=== PATIENT | male | born 1965 | race Caucasian/White ===

== ENCOUNTER 2022-04-09 00:12 | Emergency (ER) | payer OTHER ==
[~2022-04-09] VITALS: Ht 175.3 cm; Wt 79.4 kg
[2022-04-09 00:12] VITALS: BP 157/78
--- NOTE | 2022-04-09 00:21 | NUR ---
PT PATRICIA NEWTON TO LOBBY
--- NOTE | 2022-04-09 02:35 | NUR ---
Dr. Byrne examining patient.
[2022-04-09] MEDS ORDERED: ACETAMINOPHEN EXTRA STRENGTH 500 MG TAB PO ONE (02:45)
--- NOTE | 2022-04-09 02:58 | NUR ---
Patient discharged with v/s stable. Written and verbal after care instructions given and explained. Patient verbalized understanding. Ambulatory with steady gait. All questions addressed prior to discharge. Advised to follow up with PMD.
== END 2022-04-09 02:58 | disposition home or self-care (01) ==
LOC: MED 00:12
DX: R07.89 Other chest pain (principal); F10.129 Alcohol abuse with intoxication, unspecified; Y90.9 Presence of alcohol in blood, level not specified; I10 Essential (primary) hypertension; Z59.00 Homelessness unspecified
CPT/HCPCS: 93005; 99283

== ENCOUNTER 2022-06-17 21:33 | Emergency (ER) | payer OTHER ==
[~2022-06-17] VITALS: Ht 175.3 cm; Wt 86.2 kg
[2022-06-17 21:33] VITALS: BP 110/80
--- NOTE | 2022-06-17 21:33 | NUR ---
TO LOBBY A/W BED AMBULATORY
--- NOTE | 2022-06-17 23:05 | NUR ---
Dr. Zhu examining patient.
[2022-06-18 03:58] VITALS: BP 115/80
== END 2022-06-18 03:58 | disposition home or self-care (01) ==
LOC: MED 21:33
DX: F10.129 Alcohol abuse with intoxication, unspecified (principal); Y90.9 Presence of alcohol in blood, level not specified
CPT/HCPCS: 99283

== ENCOUNTER 2022-06-20 09:22 | Emergency (ER) | payer OTHER ==
[~2022-06-20] VITALS: Ht 175.3 cm; Wt 74.8 kg
[2022-06-20 09:32] VITALS: BP 147/67
--- NOTE | 2022-06-20 09:45 | NUR ---
DAGOBERTO NEWTON RUN FOR REFILL ON [employer].
[2022-06-20] MEDS ORDERED: KEP500 PO (09:48)
--- NOTE | 2022-06-20 10:03 | NUR ---
Patient discharged with v/s stable. Written and verbal after care instructions given and explained. Patient alert, oriented and verbalized understanding of instructions. Ambulatory with steady gait. All questions addressed prior to discharge. ID band removed. Patient advised to follow up with PMD. Rx of KEJUAN given. Patient educated on indication of medication including possible reaction and side effects. Opportunity to ask questions provided and answered.
== END 2022-06-20 10:03 | disposition home or self-care (01) ==
LOC: MED 09:22
DX: G40.909 Epilepsy, unspecified, not intractable, without status epilepticus (principal); Z76.0 Encounter for issue of repeat prescription; Z79.899 Other long term (current) drug therapy
CPT/HCPCS: 99281

== ENCOUNTER 2022-06-20 14:46 | Emergency (ER) | payer OTHER ==
[~2022-06-20] VITALS: Ht 175.3 cm; Wt 95.3 kg
[~2022-06-20 14:46] MED LIST: KEP500 PO
[2022-06-20 14:49] VITALS: BP 127/80
--- NOTE | 2022-06-20 14:54 | NUR ---
PT TO [facility]
--- NOTE | 2022-06-20 15:35 | NUR ---
called by pa taylor no answer at this time
--- NOTE | 2022-06-20 15:36 | NUR ---
1 ST CALL N/A IN ER LOBBY [id number] CALL ER LOBBY N/A [id number] CALL ER DEMIAN
== END 2022-06-20 15:36 | disposition left against medical advice (07) ==
LOC: MED 14:46
DX: R56.9 Unspecified convulsions (principal); Z76.0 Encounter for issue of repeat prescription; Z53.21 Procedure and treatment not carried out due to patient leaving prior to being seen by health care provider

== ENCOUNTER 2022-06-22 09:51 | Inpatient (IN) | payer OTHER ==
[~2022-06-22] VITALS: Ht 182.9 cm; Wt 95.3 kg
[2022-06-22 09:52] VITALS: BP 116/60
[2022-06-22] MEDS ORDERED: levETIRAcetam 1,000 MG in NACL 0.9% 100 ML IV ONE (09:55)
[2022-06-22] MEDS ORDERED: NACL 0.9% 1,000 ML IV SCH (09:55)
[2022-06-22] MEDS ORDERED: LORazepam 2 MG/ML VIAL IVP ONE (10:00)
--- NOTE | 2022-06-22 10:00 | NUR ---
pt biba draw sheeted to bed 6
--- NOTE | 2022-06-22 10:01 | NUR ---
57 Y/O MALE BIBA FROM THE STREET C/O ALOC/SEIZURE. PT WAS FOUND FACE DOWN, UNRESPONSIVE. PT HAD ACTIVE SEIZURE LASTING 30 SECONDS IN AMBULANCE. MEDICS GAVE 5MG VERSED IN. PT PRESENTS TO ED POSTICTAL, GCS 3, PT COUGHING +GAG REFLEX. PT ON 15L NONREBREATHER. +REDNESS/ABRASIONS TO FOREHEAD. PT HOMELESS, DIRTY AND DISHELEVED. PT IN GOWN ON CARDIAC/O2 MONITOR. RT AT BEDSIDE. DR HENRIQUEZ AWARE OF PTS STATUS PMH:SEIZURE- MEDICATION BOTTLE OF KEPPRA FOUND ON PT ALLERGIES:UNOBTAINABLE
--- NOTE | 2022-06-22 10:11 | NUR ---
TAKEN TO CT SCAN
[2022-06-22 10:20] LABS: BASOPHILS # (AUTO) 0.1 K/uL (0.00-0.22); BASOPHILS % (AUTO) 0.8 % (0.0-2.0); EOSINOPHILS # (AUTO) 0.3 K/uL (0-0.4); HEMOGLOBIN 12.5 g/dL (12.0-18.0); LYMPHOCYTES % (AUTO) 11.9 % (20.5-51.1); MEAN CORPUSCULAR HEMOGLOBIN 28 pg (27-31); MEAN CORPUSCULAR HGB CONC 31 g/dL (33-37); MEAN CORPUSCULAR VOLUME 89.7 fL (80-94); MONOCYTES # (AUTO) 1.1 K/uL (0.8-1.0); MONOCYTES % (AUTO) 6.4 % (1.7-9.3); NEUTROPHILS # (AUTO) 13.1 K/uL (1.8-7.7); NEUTROPHILS % (AUTO) 78.9 % (42.2-75.2); PLATELET COUNT (AUTO) 265 K/uL (140-450); RED BLOOD CELL COUNT(AUTO) 4.46 MIL/uL (4.20-6.10); RED CELL DISTRIBUTION WIDTH 16.3 % (11.6-13.7); WHITE BLOOD COUNT (AUTO) 16.6 K/uL (4.8-10.8)
--- NOTE | 2022-06-22 10:25 | NUR ---
ASSISTED RN WITH PT TRANSFER TO CT. NO PROBLEMS AT THIS TIME. GLIDESCOPE AND VENT ON STANDBY FOR POSSIBLE INTUBATION
--- NOTE | 2022-06-22 10:26 | NUR ---
BACK FROM CT SCAN
--- NOTE | 2022-06-22 10:27 | NUR ---
PT BACK FROM CT, CONNECTED TO CARDIAC/O2 MONITORING. RT AT BEDSIDE. PT IS NOW MOVING ALL EXTREMETIES VOLUNTARILY. PT OPENING EYES TO VOICE/PAINFUL STIMULI. DR HENRIQUEZ AWARE.
[2022-06-22 10:59] LABS: PROTHROMBIN TIME 9.6 secs (10.8-13.4)
[2022-06-22 11:10] LABS: ALBUMIN 3.8 g/dL (3.4-5.0); ANION GAP 35.1 (8-16); CARBON DIOXIDE 9.7 mmol/L (21-32); CREATININE 1.2 mg/dL (0.6-1.3); POTASSIUM 3.8 mmol/L (3.5-5.1); TOTAL BILIRUBIN 0.1 mg/dL (0.0-1.0)
[2022-06-22 11:30] LABS: ACETAMINOPHEN < 0.5 ug/ml (10-30)
[2022-06-22] MEDS ORDERED: CEFEPIME 2,000 MG in DEXTROSE 5% 100 ML IV ONE (11:45)
[2022-06-22] MEDS ORDERED: NACL 0.9% 1,000 ML IV ONE (11:45)
[2022-06-22] MEDS ORDERED: LACTULOSE 20 GM/30 ML UDC PO ONE (11:45)
[2022-06-22] MEDS ORDERED: VANCOMYCIN 1,000 MG in DEXTROSE 5% 250 ML IV ONE (11:45)
[2022-06-22] MEDS ORDERED: NACL 0.9% 2,000 ML IV ONE (11:45)
--- NOTE | 2022-06-22 11:50 | NUR ---
SPO2 100% ON 15 LITERS NONREBREATHER, PT PLACED ON 5L N/C PER DR EPPS
--- NOTE | 2022-06-22 11:51 | NUR ---
PT IS NOW AWAKE AND ANSWERING QUESTIONS. PT A/O X4. PT STATES "I HAD A SEIZURE". PT REPORTS HE HAS BEEN HAVING HEADACHE, FEVER, DIARRHEA X1 WEEK. PT REPORTS HX OF SEIZURE AND ALLERGIES TO PCN.
[2022-06-22] MEDS ORDERED: CEFEPIME 2,000 MG VIAL IV ONE (12:05)
--- NOTE | 2022-06-22 12:40 | NUR ---
PT SOILED HIMSELF. PT CLEANED, PROVIDED NEW GOWN AND DIAPER. DR HENRIQUEZ AWARE
[2022-06-22] MEDS ORDERED: LOPERAMIDE 2 MG CAP PO ONE (12:45)
--- NOTE | 2022-06-22 12:45 | NUR ---
DR WILSON AT BEDSIDE EVALUATING PT
[2022-06-22] MEDS ORDERED: ACETAMINOPHEN 325 MG TAB PO PRN (12:55)
[2022-06-22] MEDS ORDERED: MORPHINE SULFATE 2 MG/ML SYR IVP PRN (12:55)
[2022-06-22] MEDS ORDERED: LORazepam 2 MG/ML VIAL IVP PRN (12:55)
[2022-06-22] MEDS ORDERED: ONDANSETRON 4 MG/2 ML VIAL IVP PRN (12:55)
[2022-06-22] MEDS ORDERED: VANCOMYCIN 1,000 MG VIAL ONE (13:01)
--- NOTE | 2022-06-22 13:15 | NUR ---
Giovany jimenez in [facility] - 06/22/22 at 1317 by [id number] RA. N/C REMOVED.
--- NOTE | 2022-06-22 13:25 | NUR ---
PT PRESENTED TO ED WITH SOILED SOCKS, WHILE APPLYING NEW CLEAN SOCKS, AN UNKNOWN PIPE AND A LIGHT WAS FOUND IT PTS SOCKS. PT STATED "ITS MEDICINE, ITS WEED". DR WILSON AWARE. SECURITY CALLED AND TOOK BELONGINGS.
--- NOTE | 2022-06-22 13:30 | NUR ---
Patient will be admitted to care of DR WILSON. Admited to TELEMETRY. Will go to room 119A. Belongings list completed. Report to REGINALD WILDER.
--- NOTE | 2022-06-22 14:15 | NUR ---
RECEIVED FROM ED PT A/OX2 SOMEWHAT NON COMPLIANT FOLLOWS SIMPLE COMMANDS WITH REPATATIVE COMMANDS ASSESSMENT COMPLETED PLAN OF CARE REVIEWED WILL CONTINUE TO MONITOR AND ASSESS PT WITH LARGE BM
[2022-06-22 16:00] VITALS: BP 143/89
[2022-06-22] MEDS: NACL 0.9% 1,000 ML IV SCH ×2 (18:00→20:00)
--- NOTE | 2022-06-22 18:00 | NUR ---
PT IMPULSIVE GETTING OUT OF BED WITHOUT ASSISSTANCE MADE AWARE TO USE CALL LIGHT PT PULLED OUT IV AND REFUSING OXYGEN IMPORTANCE OF OXYGEN EXPLAINED AND PT AGREED TO WEAR OXYGEN ORDERED ALL NEEDS ANTICIPATED AND MET WILL ENDORSE CARE TO ONCOMING LICNESED NURSE
--- NOTE | 2022-06-22 19:20 | NUR ---
RECEIVED REPORT FROM DAY SHIFT NURSE. NO S/S OF DISTRESS. CALL LIGHT IN REACH. ALL SAFETY MEASURES IN PLACE. SYMMETRICAL CHEST RISE AND FALL. IV PULLED OUT. WILL REENFORCE LEFT HAND IV AND RESTART FLUIDS
--- NOTE | 2022-06-22 19:30 | NUR ---
RECEIVED REPORT FROM DAY SHIFT NURSE. NO S/S OF DISTRESS. CALL LIGHT IN REACH. ALL SAFETY MEASURES IN PLACE. SYMMETRICAL CHEST RISE AND FALL. TIM ARORA AT BEDSIDE. GTUBE RUNNING PER ORDER Addendum: 06/22/22 at 2118 by Frieda Mariee RN RN DISREGARD WRONG PT
[2022-06-22 20:00] VITALS: BP 97/46
[2022-06-22] MEDS: levETIRAcetam 500 MG in NACL 0.9% 100 ML IV SCH (20:42)
--- NOTE | 2022-06-22 20:43 | NUR ---
PT COMPLAINED OF ANXIETY AND RESTLESSNESS. PRN ADMINISTERED PER MD ORDER. TELE BOX CHANGED. REORIENTED PT TO ROOM, CALL LIGHT, IV TUBING, AND TELE BOX.
--- NOTE | 2022-06-22 21:10 | NUR ---
PT STABLE. NO S/S OF DISTRESS. ALL SAFETY MEASURES IN PLACE. ARORA DRAINING. GT RESIDUAL 5ML, TOLERATING WELL. PT DIAPHORETIC, TEMP 96.8, KS 109 Addendum: 06/22/22 at 2120 by Frieda Mariee RN RN DISREGARD, WRONG PT
[2022-06-22 22:21] LABS: APPEARANCE,URINE CLEAR (CLEAR); BILIRUBIN,URINE NEGATIVE (NEGATIVE); BLOOD, URINE 2+ (NEGATIVE); COLOR,URINE YELLOW (YELLOW); LEUKOCYTE ESTERASE ,URINE NEGATIVE (NEGATIVE); NITRITE, URINE NEGATIVE (NEGATIVE); PH,URINE 5.5 (5.0-9.0); UGLUCOSE 1+ (NEGATIVE)
[2022-06-22 22:36] LABS: RBC,URINE 0-5 /HPF (0-5); WBC,URINE 0-5 /HPF (0-5)
--- NOTE | 2022-06-22 23:56 | NUR ---
PT UP TO BR. PROVIDED WARM BLANKET. SEIZURE PRECAUTIONS IN PLACE. NO S/S OF DISTRESS. CALL LIGHT IN REACH. ALL SAFETY MEASURES IN PLACE. IV REENFORCED AND RUNNING PER MD ORDERS
[2022-06-23] VITALS: BP 150/79
--- NOTE | 2022-06-23 02:12 | NUR ---
PT UP TO BR. REORIENTATED TO IV PUMP AND TUBING. REENFORCED IV SITE
[2022-06-23] MEDS: NACL 0.9% 1,000 ML IV SCH ×2 (02:15→08:19)
--- NOTE | 2022-06-23 04:00 | NUR ---
PT REFUSED VITALS, STATED "LEAVE ME ALONE TO SLEEP". NO S/S OF DISTRESS. CALL LIGHT IN REACH. ALL SAFETY MEASURES IN PLACE
--- NOTE | 2022-06-23 06:25 | NUR ---
SPOKE TO PT AND LAB. PT AGREED TO ALLOW LABS TO BE DRAWN. CLAY CARMAN AT BEDSIDE. PT PULLED OUT IV, CANULA WAS INTACT. REORIENTED PT TO IV PUMP AND TUBING, EXPLAINED THAT PT MUST TAKE IV POLE TO AND FROM BR. NEW IV INSERTED, PT TOLERATED WELL. ALL SAFETY MEASURES IN PLACE
[2022-06-23 07:12] LABS: BASOPHILS # (AUTO) 0.1 K/uL (0.00-0.22); EOSINOPHILS # (AUTO) 0.3 K/uL (0-0.4); EOSINOPHILS % (AUTO) 4.6 % (0.0-4.0); HEMATOCRIT 35.9 % (36-52); HEMOGLOBIN 11.6 g/dL (12.0-18.0); LYMPHOCYTES # (AUTO) 0.9 K/uL (2.0-11.5); LYMPHOCYTES % (AUTO) 14.3 % (20.5-51.1); MEAN CORPUSCULAR HEMOGLOBIN 28 pg (27-31); MEAN CORPUSCULAR HGB CONC 32 g/dL (33-37); MEAN CORPUSCULAR VOLUME 86.1 fL (80-94); MONOCYTES # (AUTO) 0.7 K/uL (0.8-1.0); MONOCYTES % (AUTO) 11.5 % (1.7-9.3); NEUTROPHILS # (AUTO) 4.4 K/uL (1.8-7.7); NEUTROPHILS % (AUTO) 68.6 % (42.2-75.2); PLATELET COUNT (AUTO) 219 K/uL (140-450); RED BLOOD CELL COUNT(AUTO) 4.17 MIL/uL (4.20-6.10); WHITE BLOOD COUNT (AUTO) 6.4 K/uL (4.8-10.8)
[2022-06-23 07:20] LABS: ALBUMIN 3.1 g/dL (3.4-5.0); ANION GAP 15.5 (8-16); CREATININE 0.7 mg/dL (0.6-1.3); MAGNESIUM 1.6 mg/dL (1.8-2.4); PHOSPHORUS 2.6 mg/dL (2.5-4.9); POTASSIUM 3.5 mmol/L (3.5-5.1); TOTAL BILIRUBIN 0.4 mg/dL (0.0-1.0)
--- NOTE | 2022-06-23 07:35 | NUR ---
ENDORSED PT TO DAY SHIFT NURSE. ALL SAFETY MEASURES IN PLACE
[2022-06-23 08:00] VITALS: BP 126/60
[2022-06-23] MEDS: levETIRAcetam 500 MG in NACL 0.9% 100 ML IV SCH (08:19)
--- NOTE | 2022-06-23 09:00 | NUR ---
patient alert and awake;respirations unlabored.patient pulled iv out and refused a restart.pt said he wants to go home.patient refused telemetry monitoring and medications.dr tong and dr ray
--- NOTE | 2022-06-23 09:16 | NUR ---
PATIENT HAS BEEN SCREENED AND CATEGORIZED LOW NUTRITION RISK. PATIENT WILL BE SEEN WITHIN 7 DAYS OF ADMISSION. 06/29/22 REFERRAL RECEIVED NOT APPLICABLE [address]
--- NOTE | 2022-06-23 11:45 | NUR ---
DC PLANNING PATIENT REFUSED TO PARTICIPATE IN ASSESSMENT AND CONTINUED TO ASK FOR HIS PIPE. PATIENT REFUSED RESOURCES OFFERED BY RAYRAY
[2022-06-23] MEDS ORDERED: KEP500 PO (12:01)
[2022-06-23 12:49] VITALS: BP 126/60
--- NOTE | 2022-06-23 13:58 | NUR ---
patient discharged at this time;instructions given.patient verbalize understanding.
== END 2022-06-23 14:05 | disposition home or self-care (01) | DRG 53 ==
LOC: MED 09:51 → MTU 12:46
PROVIDERS: ADMIT Hospitalist; ATTEND Hospitalist
DX: G40.509 Epileptic seizures related to external causes, not intractable, without status epilepticus (principal); G92.8 Other toxic encephalopathy; E87.20 Acidosis, unspecified; E16.2 Hypoglycemia, unspecified; Z20.822 Contact with and (suspected) exposure to COVID-19; Z59.00 Homelessness unspecified; Z88.0 Allergy status to penicillin; Z79.899 Other long term (current) drug therapy
CPT/HCPCS: 36415; 36600; 70450; 70486; 71045; 80053; 81001; 82009; 82140; 82550; 82553; 82803; 83605; 83735; 83880; 84100; 84484; 85025; 85610; 85730; 87040; 93005; 96365; 96367; 96368; 96375; 99291; G0480; G0482; J0692; J1953; J2060; J3370

== ENCOUNTER 2022-06-25 18:34 | Emergency (ER) | payer OTHER ==
[~2022-06-25] VITALS: Ht 182.9 cm; Wt 94.9 kg
[2022-06-25 18:37] VITALS: BP 110/75
[2022-06-25] MEDS ORDERED: levETIRAcetam 500 MG TAB PO ONE (19:00)
[2022-06-25 19:35] LABS: BASOPHILS # (AUTO) 0.1 K/uL (0.00-0.22); BASOPHILS % (AUTO) 1.8 % (0.0-2.0); EOSINOPHILS # (AUTO) 0.3 K/uL (0-0.4); EOSINOPHILS % (AUTO) 4.9 % (0.0-4.0); HEMATOCRIT 36.1 % (36-52); HEMOGLOBIN 11.8 g/dL (12.0-18.0); LYMPHOCYTES # (AUTO) 2.1 K/uL (2.0-11.5); MEAN CORPUSCULAR HEMOGLOBIN 28 pg (27-31); MEAN CORPUSCULAR HGB CONC 33 g/dL (33-37); MEAN CORPUSCULAR VOLUME 86.4 fL (80-94); MONOCYTES # (AUTO) 0.6 K/uL (0.8-1.0); MONOCYTES % (AUTO) 10.3 % (1.7-9.3); NEUTROPHILS # (AUTO) 2.7 K/uL (1.8-7.7); PLATELET COUNT (AUTO) 238 K/uL (140-450); RED BLOOD CELL COUNT(AUTO) 4.18 MIL/uL (4.20-6.10); RED CELL DISTRIBUTION WIDTH 15.8 % (11.6-13.7); WHITE BLOOD COUNT (AUTO) 5.8 K/uL (4.8-10.8)
[2022-06-25 19:51] LABS: ANION GAP 16.9 (8-16); CARBON DIOXIDE 21.8 mmol/L (21-32); CREATININE 0.7 mg/dL (0.6-1.3); POTASSIUM 3.7 mmol/L (3.5-5.1)
[2022-06-25] MEDS ORDERED: KEP500 PO (20:38)
[2022-06-25 20:55] VITALS: BP 124/70
== END 2022-06-25 20:56 | disposition home or self-care (01) ==
LOC: MED 18:34
DX: G40.909 Epilepsy, unspecified, not intractable, without status epilepticus (principal); Z79.899 Other long term (current) drug therapy; Z88.0 Allergy status to penicillin
CPT/HCPCS: 36415; 71045; 80048; 85025; 93005; 99285; Q0092

== ENCOUNTER 2022-06-26 17:35 | Emergency (ER) | payer OTHER ==
[~2022-06-26] VITALS: Ht 175.3 cm; Wt 80.7 kg
[2022-06-26 17:39] VITALS: BP 132/84
[2022-06-26] MEDS ORDERED: levETIRAcetam 500 MG TAB PO ONE (20:20)
[2022-06-26 23:00] VITALS: BP 106/67
== END 2022-06-26 23:00 | disposition home or self-care (01) ==
LOC: MED 17:35
DX: F10.129 Alcohol abuse with intoxication, unspecified (principal); Z91.14 Patient's other noncompliance with medication regimen; Z88.0 Allergy status to penicillin; Z79.899 Other long term (current) drug therapy
CPT/HCPCS: 99283

== ENCOUNTER 2022-06-27 03:00 | Emergency (ER) | payer OTHER ==
--- NOTE | 2022-06-27 03:35 | NUR ---
CALLED PT TO TRIAGE FROM LOBBY AND OUTSIDE.
== END 2022-06-27 03:36 | disposition left against medical advice (07) ==
LOC: MED 03:00
DX: Z76.0 Encounter for issue of repeat prescription (principal); Z53.21 Procedure and treatment not carried out due to patient leaving prior to being seen by health care provider

== ENCOUNTER 2022-06-27 04:54 | Emergency (ER) | payer OTHER ==
--- NOTE | 2022-06-27 05:15 | NUR ---
CALLED PT TO TRIAGE FROM LOBBY AND OUTSIDE. PT CHECKED IN 2XS TONIGHT, LWBS BOTH TIMES.
== END 2022-06-27 05:15 | disposition left against medical advice (07) ==
LOC: MED 04:54
DX: R51.9 Headache, unspecified (principal); Z53.21 Procedure and treatment not carried out due to patient leaving prior to being seen by health care provider

== ENCOUNTER 2022-08-07 17:44 | Emergency (ER) | payer OTHER ==
[~2022-08-07] VITALS: Ht 144.8 cm; Wt 80.7 kg
--- NOTE | 2022-08-07 17:45 | NUR ---
BIBA TAKEN TO BED 11
[2022-08-07] MEDS ORDERED: levETIRAcetam 1,000 MG in NACL 0.9% 100 ML IV ONE (17:55)
[2022-08-07 18:10] VITALS: BP 111/72
[2022-08-07 18:33] LABS: BASOPHILS # (AUTO) 0.1 K/uL (0.00-0.22); BASOPHILS % (AUTO) 1.4 % (0.0-2.0); EOSINOPHILS # (AUTO) 0.3 K/uL (0-0.4); EOSINOPHILS % (AUTO) 4.3 % (0.0-4.0); HEMATOCRIT 37.7 % (36-52); HEMOGLOBIN 12.3 g/dL (12.0-18.0); LYMPHOCYTES # (AUTO) 2.1 K/uL (2.0-11.5); LYMPHOCYTES % (AUTO) 27.4 % (20.5-51.1); MEAN CORPUSCULAR HEMOGLOBIN 28 pg (27-31); MEAN CORPUSCULAR HGB CONC 33 g/dL (33-37); MEAN CORPUSCULAR VOLUME 85.5 fL (80-94); MONOCYTES # (AUTO) 0.7 K/uL (0.8-1.0); MONOCYTES % (AUTO) 8.5 % (1.7-9.3); NEUTROPHILS # (AUTO) 4.5 K/uL (1.8-7.7); NEUTROPHILS % (AUTO) 58.4 % (42.2-75.2); PLATELET COUNT (AUTO) 382 K/uL (140-450); RED BLOOD CELL COUNT(AUTO) 4.41 MIL/uL (4.20-6.10); RED CELL DISTRIBUTION WIDTH 16.9 % (11.6-13.7); WHITE BLOOD COUNT (AUTO) 7.6 K/uL (4.8-10.8)
[2022-08-07 18:50] LABS: ANION GAP 15.9 (8-16); CARBON DIOXIDE 29.1 mmol/L (21-32); CREATININE 0.8 mg/dL (0.6-1.3)
[2022-08-07 19:07] LABS: ACETAMINOPHEN < 0.5 ug/ml (10-30); SALICYLATE < 2.8 mg/dL (2.8-20.0)
--- NOTE | 2022-08-07 19:20 | NUR ---
57/M BIBA FROM STREETS WITH C/O SEIZURE. PER EMS PATIENT FLAGGED DOWN BYSTANDERS STATING HE HAD A SEIZURE, PER EMS SEIZURE NOT WITNESSED BY ANYONE ON SCENE, PATIENT GCS 15 ON SCENE AND UPON ARRIVAL. PATIENT STATES HX OF SEIZURES STATING "SOMEONE KEEPS STEALING MY KEPPRA." PATIENT ADMITS TO CONSUMING 48 OZ BEER TODAY STATING "I DRINK BEER EVERYDAY." PATIENT PLACED ON BEDSIDE CODING TECH, SEIZURE PRECAUTIONS IN PLACE, DR. HENRIQUEZ ASSESSING PATIENT UPON ARRIVAL.
--- NOTE | 2022-08-07 19:30 | NUR ---
ASSUME CARE OF PT, REPORT GIVEN BY ALISON WILDER. PT RESTING IN BED ON AIR TRANSPORTATION PROVIDER, PT BIBA FOR UNWITNESSED SEIZURE LIKE ACTIVITY, KEPPRA IV INFUSING. SEIZURE PRECAUTION IN PLACE. NO SEIZURE ACTIVITY OBSERVED WHILE IN ED. HX- KEOCRA
--- NOTE | 2022-08-07 19:30 | NUR ---
Pt report given to MALI WILDER. Transfer of care at this time.
[2022-08-07] MEDS ORDERED: NACL 0.9% 1,000 ML IV ONE (20:15)
[2022-08-07] MEDS ORDERED: KEP500 PO (20:51)
--- NOTE | 2022-08-07 21:00 | NUR ---
PT AMBULATED TO RESTROOM WITH UPRIGHT STEADY GAIT. PT A/O X 4, SPEAKING IN COMPLETE SENTENCES.
--- NOTE | 2022-08-07 21:02 | NUR ---
Patient discharged with v/s stable. Written and verbal after care instructions given and explained. Patient alert, oriented and verbalized understanding of instructions. Ambulatory with steady gait. All questions addressed prior to discharge. ID band removed. Patient advised to follow up with PMD. Rx SENT TO PHARMACY. Patient educated on indication of medication including possible reaction and side effects. Opportunity to ask questions provided and answered.
[2022-08-07 21:05] VITALS: BP 132/68
[2022-08-08] MEDS ORDERED: KEP500 PO (05:49)
== END 2022-08-07 21:05 | disposition home or self-care (01) ==
LOC: MED 17:44
DX: R56.9 Unspecified convulsions (principal); F10.129 Alcohol abuse with intoxication, unspecified; J45.909 Unspecified asthma, uncomplicated; Z79.899 Other long term (current) drug therapy; Z88.0 Allergy status to penicillin
CPT/HCPCS: 36415; 71045; 80048; 85025; 96365; 99284; G0480; G0482; J1953; Q0092

== ENCOUNTER 2022-08-08 04:10 | Emergency (ER) | payer OTHER ==
[~2022-08-08] VITALS: Ht 175.3 cm; Wt 88.0 kg
[2022-08-08 05:15] VITALS: BP 168/98
--- NOTE | 2022-08-08 05:25 | NUR ---
pt to lobby
--- NOTE | 2022-08-08 05:44 | NUR ---
Dr. Babcock examining patient.
[2022-08-08] MEDS ORDERED: levETIRAcetam 500 MG TAB PO ONE (05:45)
[2022-08-08] MEDS ORDERED: KEP500 PO (05:49)
--- NOTE | 2022-08-08 06:10 | NUR ---
Patient discharged with v/s stable. Written and verbal after care instructions given and explained. Patient alert, oriented and verbalized understanding of instructions. Ambulatory with steady gait. All questions addressed prior to discharge. ID band removed. Patient advised to follow up with PMD. Rx of JELLY given.
== END 2022-08-08 06:10 | disposition home or self-care (01) ==
LOC: MED 04:10
DX: R56.9 Unspecified convulsions (principal); J45.909 Unspecified asthma, uncomplicated; Z76.0 Encounter for issue of repeat prescription; Z88.0 Allergy status to penicillin; Z79.899 Other long term (current) drug therapy
CPT/HCPCS: 99281

== ENCOUNTER 2022-11-27 16:56 | Emergency (ER) | payer MEDICAID ==
[~2022-11-27] VITALS: Ht 172.7 cm; Wt 90.7 kg
[~2022-11-27 16:56] MED LIST changes: +IBUP-2213 PO; +SULF-58 PO
[2022-11-27] MEDS ORDERED: NACL 0.9% 1,000 ML IV SCH (17:15)
[2022-11-27] MEDS ORDERED: LORazepam 2 MG/ML VIAL IVP ONE (17:15)
[2022-11-27] MEDS ORDERED: levETIRAcetam 1,000 MG in NACL 0.9% 100 ML IV ONE (17:15)
[2022-11-27 17:26] VITALS: BP 120/63
[2022-11-27 18:18] LABS: BASOPHILS # (AUTO) 0.1 K/uL (0.00-0.22); BASOPHILS % (AUTO) 0.8 % (0.0-2.0); EOSINOPHILS # (AUTO) 0.2 K/uL (0-0.4); EOSINOPHILS % (AUTO) 1.5 % (0.0-4.0); HEMATOCRIT 37.6 % (36-52); HEMOGLOBIN 12.3 g/dL (12.0-18.0); LYMPHOCYTES # (AUTO) 0.9 K/uL (2.0-11.5); LYMPHOCYTES % (AUTO) 8.4 % (20.5-51.1); MEAN CORPUSCULAR HEMOGLOBIN 29 pg (27-31); MEAN CORPUSCULAR HGB CONC 33 g/dL (33-37); MEAN CORPUSCULAR VOLUME 87.7 fL (80-94); MONOCYTES # (AUTO) 1.2 K/uL (0.8-1.0); MONOCYTES % (AUTO) 11.5 % (1.7-9.3); NEUTROPHILS # (AUTO) 8.1 K/uL (1.8-7.7); NEUTROPHILS % (AUTO) 77.8 % (42.2-75.2); PLATELET COUNT (AUTO) 308 K/uL (140-450); RED BLOOD CELL COUNT(AUTO) 4.29 MIL/uL (4.20-6.10); RED CELL DISTRIBUTION WIDTH 17.1 % (11.6-13.7); WHITE BLOOD COUNT (AUTO) 10.4 K/uL (4.8-10.8)
[2022-11-27 18:39] LABS: ALBUMIN 3.6 g/dL (3.4-5.0); ANION GAP 11.9 (8-16); ASPARTATE AMINOTRANSFERASE 28 U/L (15-37); CARBON DIOXIDE 27.9 mmol/L (21-32); CHLORIDE 104 mmol/L (98-107); GFR ARICAN-AMERICAN 99 mL/min (>90); GLUCOSE 97 mg/dL (74-106); POTASSIUM 3.8 mmol/L (3.5-5.1); SODIUM SERUM 140 mmol/L (136-145); TOTAL BILIRUBIN 0.1 mg/dL (0.0-1.0); UREA NITROGEN, BLOOD 15 mg/dL (7-18)
[2022-11-27 18:44] LABS: ACETONE, SERUM NEGATIVE (NEGATIVE)
[2022-11-27] MEDS ORDERED: levETIRAcetam 1,000 MG in NACL 0.9% 100 ML IV SCH (19:00)
--- NOTE | 2022-11-27 19:35 | NUR ---
SLEEPING IN BED, SLIGHTLY AROUSABLE WITH PAINFUL PROCEDURES. CATH URINE OBTAINED WITHOUT RESISTANCE AND TRAUMA
[2022-11-27 19:57] LABS: BARBITURATE, URINE NEGATIVE ng/ml (NEG <=200); BENZODIAZEPINE, URINE POSITIVE ng/mL (NEG <=200); CANNABINOID, URINE POSITIVE ng/mL (NEG <=50); COCAINE, URINE NEGATIVE ng/mL (NEG <=300); OPIATE, URINE NEGATIVE ng/mL (NEG <=2000); PHENCYCLIDINE SCREEN,URINE NEGATIVE ng/mL (NEG <=25)
[2022-11-27] MEDS ORDERED: LEVE500T9 PO (21:04)
[2022-11-27] MEDS ORDERED: LIB25 PO (21:05)
--- NOTE | 2022-11-27 22:06 | NUR ---
Bilateral hand IVs removed, catheter intact and site benign. Applied folded 4x4 gauze and tape to stop bleeding.
[2022-11-27 22:08] VITALS: BP 103/63
--- NOTE | 2022-11-27 22:08 | NUR ---
Patient discharged. Written and verbal after care instructions given and explained. Patient alert, oriented and verbalized understanding of instructions. Wheel Chair Assisted to lobby. Provided homeless packet, food, and clothing for patient. All questions addressed prior to discharge. ID band removed. Patient advised to follow up with PMD. Rx of Keppra XR & Librium given. Patient educated on indication of medication including possible reaction and side effects. Opportunity to ask questions provided and answered.
== END 2022-11-27 22:08 | disposition home or self-care (01) ==
LOC: MED 16:56
DX: G40.89 Other seizures (principal); F10.239 Alcohol dependence with withdrawal, unspecified; I10 Essential (primary) hypertension; Z76.0 Encounter for issue of repeat prescription; Z59.00 Homelessness unspecified; Z79.899 Other long term (current) drug therapy; Z88.0 Allergy status to penicillin; Y90.9 Presence of alcohol in blood, level not specified
CPT/HCPCS: 36415; 71045; 80053; 80305; 82009; 82550; 82553; 83605; 83735; 84100; 85025; 87040; 87086; 93005; 96361; 96365; 96375; 99285; G0482; J1953; J2060; J7030

== ENCOUNTER 2022-11-29 05:23 | Emergency (ER) | payer MEDICAID ==
[~2022-11-29] VITALS: Ht 172.7 cm; Wt 117.9 kg
[~2022-11-29 05:23] MED LIST changes: +LEVE500T9 PO; +LIB25 PO
--- NOTE | 2022-11-29 05:23 | NUR ---
Called Code - please see code blue record document
--- NOTE | 2022-11-29 05:23 | NUR ---
PT BIBA ALS, FULL ARREST. PT TAKEN TO ER BED 1. DR. HENRIQUEZ AND RT AT BEDSIDE
--- NOTE | 2022-11-29 05:24 | NUR ---
[place] [facility] AT BEDSIDE
[2022-11-29 05:25] VITALS: BP 0/0
--- NOTE | 2022-11-29 05:42 | NUR ---
PT PRONOUNCED BY DR. HENRIQUEZ AT THIS TIME
--- NOTE | 2022-11-29 06:00 | NUR ---
Called [facility] to report ; spoke to Yu. Addendum: 11/29/22 at 0618 by [id number] Pending coroners case at this time.
--- NOTE | 2022-11-29 06:06 | NUR ---
Called [facility]; spoke to Delia. Referral # [id number] Will notify next on kin on file and will follow up with case.
--- NOTE | 2022-11-29 07:03 | NUR ---
Followed up with plug grower; still pending case at this time; spoke to Beata.
--- NOTE | 2022-11-29 07:26 | NUR ---
Pt report/care endorsed to TINA James. Endorsed peding coroners case for follow up. Questions/Concerns answered.
--- NOTE | 2022-11-29 08:13 | NUR ---
SPOKE TO LESVIA BHAT WHO IS THE IUSS ANALYST. CASE NUMBER IS [id number]
== END 2022-11-29 05:42 ==
LOC: EDUNIT# 05:23 → MED 05:23
DX: S02.82XA Fracture of other specified skull and facial bones, left side, initial encounter for closed fracture (principal); S82.892A Other fracture of left lower leg, initial encounter for closed fracture; S01.81XA Laceration without foreign body of other part of head, initial encounter; S30.1XXA Contusion of abdominal wall, initial encounter; I46.9 Cardiac arrest, cause unspecified; Z79.899 Other long term (current) drug therapy; Z79.2 Long term (current) use of antibiotics; Z79.1 Long term (current) use of non-steroidal anti-inflammatories (NSAID); Z86.69 Personal history of other diseases of the nervous system and sense organs; Z88.0 Allergy status to penicillin; V89.2XXA Person injured in unspecified motor-vehicle accident, traffic, initial encounter; Y93.89 Activity, other specified; Y92.410 Unspecified street and highway as the place of occurrence of the external cause; Y99.8 Other external cause status
CPT/HCPCS: 31500; 92950; 99291